=== PATIENT | male | born 1985 | race Two or more races ===

== ENCOUNTER 2020-05-05 16:16 | Inpatient (IN) | payer SELFPAY ==
[~2020-05-05] VITALS: Ht 170.2 cm; Wt 108.6 kg
[2020-05-05] MEDS ORDERED: MORPHINE SULF INJ 2 MG/ML SYRINGE 1ML IV ONE ×3 (19:45→21:45)
[2020-05-05] MEDS ORDERED: ONDANSETRON HCL 4 MG/2 ML VIAL IV ONE (19:45)
[2020-05-05 19:52] LABS: Basophils # (auto) 0.1 10 ^3/uL (0-0.2); Basophils % (auto) 0.3 % (0.0-2.0); Eosinophils # (auto) 0 10 ^3/uL (0-0.8); Hematocrit 46.5 % (41.0-53.0); Hemoglobin 15.7 g/dL (13.5-17.5); Lymphocytes # (auto) 1.4 10 ^3/uL (0.4-5.4); Lymphocytes % (auto) 6.6 % (10.0-50.0); Mean Corpuscular Hemoglobin 28.9 pg (28.0-32.0); Mean Corpuscular Hgb Conc. 33.7 g/dL (32.0-36.0); Mean Corpuscular Volume 85.8 fL (80.0-100.0); Monocytes # (auto) 1.9 10 ^3/uL (0-1.3); Monocytes % (auto) 8.8 % (0.0-12.0); Neutrophils % (auto) 84.3 % (37.0-80.0); Platelet Count (auto) 385 10^3/uL (140-450); Red Blood Cells 5.42 10^6/uL (4.5-5.90); Red Cell Distribution Width 13.3 % (11.8-14.3); White Blood Cell 21.4 10^3/uL (4.4-10.8)
[2020-05-05 20:07] LABS: Albumin 3.9 g/dL (3.4-5.0); Calcium 8.5 mg/dL (8.5-10.1)
[2020-05-05 20:10] LABS: Bilirubin, Total 0.9 mg/dL (0.2-1.0)
[2020-05-05] MEDS ORDERED: LACTATED RINGER'S 1,000 ML IV ONE (20:45)
[2020-05-05] MEDS ORDERED: HYDROcodone-ACET 5/325MG TAB PO PRN (22:30)
[2020-05-05] MEDS ORDERED: LACTATED RINGER'S 1,000 ML IV SCH (22:30)
[2020-05-05] MEDS ORDERED: DOCUSATE SOD 100 MG CAP PO PRN (22:30)
[2020-05-05] MEDS ORDERED: NITROGLYCERIN 0.4 MG SL TAB SL PRN (22:30)
[2020-05-05] MEDS ORDERED: MORPHINE SULF INJ 2 MG/ML SYRINGE 1ML IV PRN (22:30)
[2020-05-05] MEDS ORDERED: ONDANSETRON HCL 4 MG/2 ML VIAL IV PRN (22:30)
[2020-05-05] MEDS ORDERED: ACETAMINOPHEN 325 MG TAB PO PRN (22:30)
[2020-05-05 23:49] LABS: Urine Amorphous Crystal FEW /hpf (None Seen); Urine Bacteria NONE SEEN /hpf (None Seen); Urine Blood 1+ /uL (Negative); Urine Hyaline Cast FEW /lpf (0 - 2); Urine Mucus FEW (None Seen); Urine Specific Gravity 1.026 (1.001-1.035); Urine WBC 8 /hpf (0 - 3)
[2020-05-06 00:15] LABS: INR 1.03 (0.9-1.15); Partial Thromboplastin Time 22.8 sec (23.0-31.2)
[2020-05-06] MEDS: MORPHINE SULFATE 4 MG/ML SYR/VIAL IV PRN ×2 (04:08→20:48)
[2020-05-06 07:49] LABS: Basophils # (auto) 0 10 ^3/uL (0-0.2); Basophils % (auto) 0.3 % (0.0-2.0); Eosinophils # (auto) 0 10 ^3/uL (0-0.8); Hematocrit 37.4 % (41.0-53.0); Hemoglobin 12.9 g/dL (13.5-17.5); Lymphocytes % (auto) 19.7 % (10.0-50.0); Mean Corpuscular Hemoglobin 28.9 pg (28.0-32.0); Mean Corpuscular Hgb Conc. 34.6 g/dL (32.0-36.0); Mean Corpuscular Volume 83.6 fL (80.0-100.0); Monocytes # (auto) 1.7 10 ^3/uL (0-1.3); Monocytes % (auto) 16.4 % (0.0-12.0); Neutrophils # (auto) 6.6 10 ^3/uL (1.6-8.6); Neutrophils % (auto) 63.6 % (37.0-80.0); Platelet Count (auto) 307 10^3/uL (140-450); Red Blood Cells 4.47 10^6/uL (4.5-5.90); White Blood Cell 10.4 10^3/uL (4.4-10.8)
[2020-05-06 08:19] LABS: Potassium 3.9 mmol/L (3.5-5.1)
[2020-05-06 08:30] LABS: Bilirubin, Total 1.9 mg/dL (0.2-1.0); Calcium 8.4 mg/dL (8.5-10.1); Total Protein 6.8 g/dL (6.4-8.2)
[2020-05-06] MEDS: cefTRIAXone 1GM/50ML D5W 50 ML IV SCH (09:29)
[2020-05-06] MEDS: PANTOPRAZOLE 40 MG/10 ML VIAL INJ IV SCH (10:20)
[2020-05-06] MEDS: ZINC SULFATE 220mg CAP or TAB PO SCH (10:21)
[2020-05-06] MEDS: ENOXAPARIN SOD 40 MG/0.4 ML SYRINGE SC SCH (10:21)
[2020-05-06] MEDS: ASCORBIC ACID 500 MG TAB PO SCH ×2 (10:21→20:49)
[2020-05-06] MEDS ORDERED: ceFAZolin 1GM/50ML 100 ML IV ONE (10:49)
[2020-05-06] MEDS ORDERED: SUCCINYLCHOLINE CHLORIDE 20 MG/ML 10ML VIAL IV ONE (10:55)
[2020-05-06] MEDS ORDERED: fentaNYL CITRATE 5 ML ONE (11:00)
[2020-05-06] MEDS ORDERED: ROCURONIUM 10MG/ML 10ML VIAL IV ONE (11:00)
[2020-05-06] MEDS ORDERED: PROPOFOL 10 MG/ML 20 ML IV ONE (11:02)
[2020-05-06] MEDS ORDERED: BUPIVACAINE 0.25% INJ 50ML VIAL ONE (11:39)
[2020-05-06] MEDS ORDERED: HYDROmorphone HCL 2 MG/ML VL ONE (13:05)
[2020-05-06] MEDS: ceFAZolin 1GM/50ML 50 ML IV SCH ×2 (13:15→20:47)
[2020-05-06] MEDS: LACTATED RINGER'S 1,000 ML IV SCH (13:15)
[2020-05-06] MEDS ORDERED: hydrALAZINE HCL 20 MG/ML VL IV PRN (13:45)
[2020-05-06] MEDS ORDERED: MORPHINE SULFATE 4 MG/ML SYR/VIAL IV PRN (13:45)
[2020-05-06] MEDS ORDERED: ePHEDrine SULFATE 50 MG/ML AMP IV PRN (13:45)
[2020-05-06] MEDS ORDERED: hydrALAZINE HCL 20 MG/ML VL ONE (13:56)
[2020-05-06] MEDS ORDERED: KETOROLAC TROMETH 30 MG/ML 1ML VIAL IV ONE (14:30)
[2020-05-06 17:00] VITALS: BP 132/79
[2020-05-06 22:00] VITALS: BP 101/62
[2020-05-07] MEDS: LACTATED RINGER'S 1,000 ML IV SCH ×3 (00:14→19:15)
[2020-05-07] MEDS: MORPHINE SULFATE 4 MG/ML SYR/VIAL IV PRN ×2 (03:16→09:07)
[2020-05-07] MEDS: ceFAZolin 1GM/50ML 50 ML IV SCH (03:19)
[2020-05-07 05:00] VITALS: BP 126/71
[2020-05-07 06:45] LABS: Basophils # (auto) 0 10 ^3/uL (0-0.2); Basophils % (auto) 0.5 % (0.0-2.0); Eosinophils # (auto) 0 10 ^3/uL (0-0.8); Eosinophils % (auto) 0.3 % (0.0-7.0); Hematocrit 29.7 % (41.0-53.0); Hemoglobin 10.5 g/dL (13.5-17.5); Lymphocytes # (auto) 1.7 10 ^3/uL (0.4-5.4); Lymphocytes % (auto) 18.4 % (10.0-50.0); Mean Corpuscular Hemoglobin 29.8 pg (28.0-32.0); Mean Corpuscular Hgb Conc. 35.2 g/dL (32.0-36.0); Mean Corpuscular Volume 84.6 fL (80.0-100.0); Monocytes # (auto) 1.1 10 ^3/uL (0-1.3); Monocytes % (auto) 11.1 % (0.0-12.0); Neutrophils # (auto) 6.6 10 ^3/uL (1.6-8.6); Neutrophils % (auto) 69.7 % (37.0-80.0); Nucleated Red Blood Cells % 0.1 %; Platelet Count (auto) 218 10^3/uL (140-450); Red Blood Cells 3.51 10^6/uL (4.5-5.90); Red Cell Distribution Width 12.7 % (11.8-14.3); White Blood Cell 9.5 10^3/uL (4.4-10.8)
[2020-05-07 07:06] LABS: Potassium 4.1 mmol/L (3.5-5.1)
[2020-05-07 07:12] LABS: Albumin 2.6 g/dL (3.4-5.0); BUN/Creatinine Ratio 14.5; Calcium 7.4 mg/dL (8.5-10.1)
[2020-05-07 07:15] LABS: Bilirubin, Total 2.6 mg/dL (0.2-1.0); Total Protein 5.9 g/dL (6.4-8.2)
[2020-05-07 09:00] VITALS: BP 124/74
[2020-05-07] MEDS: cefTRIAXone 1GM/50ML D5W 50 ML IV SCH (09:15)
[2020-05-07] MEDS: ASCORBIC ACID 500 MG TAB PO SCH ×2 (10:08→21:48)
[2020-05-07] MEDS: ZINC SULFATE 220mg CAP or TAB PO SCH (10:08)
[2020-05-07] MEDS: PANTOPRAZOLE 40 MG/10 ML VIAL INJ IV SCH (10:08)
[2020-05-07] MEDS: ENOXAPARIN SOD 40 MG/0.4 ML SYRINGE SC SCH (10:09)
[2020-05-07 13:00] VITALS: BP 133/70
[2020-05-07 17:00] VITALS: BP 130/70
[2020-05-08] MEDS: LACTATED RINGER'S 1,000 ML IV SCH (05:00)
[2020-05-08 05:10] VITALS: BP 117/69
[2020-05-08 05:42] LABS: Basophils # (auto) 0 10 ^3/uL (0-0.2); Basophils % (auto) 0.4 % (0.0-2.0); Eosinophils # (auto) 0.1 10 ^3/uL (0-0.8); Eosinophils % (auto) 0.9 % (0.0-7.0); Hematocrit 28.6 % (41.0-53.0); Hemoglobin 9.9 g/dL (13.5-17.5); Lymphocytes # (auto) 1.7 10 ^3/uL (0.4-5.4); Lymphocytes % (auto) 15.9 % (10.0-50.0); Mean Corpuscular Hemoglobin 29.2 pg (28.0-32.0); Mean Corpuscular Hgb Conc. 34.6 g/dL (32.0-36.0); Mean Corpuscular Volume 84.3 fL (80.0-100.0); Monocytes # (auto) 0.9 10 ^3/uL (0-1.3); Monocytes % (auto) 8.8 % (0.0-12.0); Neutrophils # (auto) 7.8 10 ^3/uL (1.6-8.6); Platelet Count (auto) 232 10^3/uL (140-450); Red Blood Cells 3.39 10^6/uL (4.5-5.90); Red Cell Distribution Width 12.7 % (11.8-14.3); White Blood Cell 10.6 10^3/uL (4.4-10.8)
[2020-05-08 06:00] LABS: Potassium 3.8 mmol/L (3.5-5.1)
[2020-05-08 06:05] LABS: BUN/Creatinine Ratio 15.8; Calcium 8.1 mg/dL (8.5-10.1)
[2020-05-08 09:00] VITALS: BP 133/65
[2020-05-08] MEDS: cefTRIAXone 1GM/50ML D5W 50 ML IV SCH (09:12)
[2020-05-08] MEDS: ASCORBIC ACID 500 MG TAB PO SCH (10:31)
[2020-05-08] MEDS: PANTOPRAZOLE 40 MG/10 ML VIAL INJ IV SCH (10:31)
[2020-05-08] MEDS: ZINC SULFATE 220mg CAP or TAB PO SCH (10:31)
[2020-05-08] MEDS: ENOXAPARIN SOD 40 MG/0.4 ML SYRINGE SC SCH (10:31)
[2020-05-08 14:35] VITALS: BP 133/65
== END 2020-05-08 15:17 | disposition home or self-care (01) | DRG 481 ==
LOC: ER 16:16 → TELE 16:17 → TELE-CENTR 05-06 16:55
PROVIDERS: ADMIT Nurse Practitioner Family; ATTEND Internal Medicine
PROC: BW1C1ZZ Fluoroscopy of Lower Extremity using Low Osmolar Contrast (ICD-10-PCS; 2020-05-06)
PROC: 0QS804Z Reposition Right Femoral Shaft with Internal Fixation Device, Open Approach (ICD-10-PCS; principal; 2020-05-06 10:55)
DX: S72.301A Unspecified fracture of shaft of right femur, initial encounter for closed fracture (principal); E44.1 Mild protein-calorie malnutrition; E87.1 Hypo-osmolality and hyponatremia; E66.01 Morbid (severe) obesity due to excess calories; E74.39 Other disorders of intestinal carbohydrate absorption; Z20.828 Contact with and (suspected) exposure to other viral communicable diseases; D72.829 Elevated white blood cell count, unspecified; D63.8 Anemia in other chronic diseases classified elsewhere; R73.9 Hyperglycemia, unspecified; S92.351A Displaced fracture of fifth metatarsal bone, right foot, initial encounter for closed fracture; V86.55XA Driver of 3- or 4- wheeled all-terrain vehicle (ATV) injured in nontraffic accident, initial encounter; Y93.89 Activity, other specified; Y92.89 Other specified places as the place of occurrence of the external cause; Y99.8 Other external cause status; Z68.37 Body mass index [BMI] 37.0-37.9, adult
CPT/HCPCS: 36415; 70450; 71045; 72170; 73600; 73630; 76000; 80048; 80053; 81001; 83036; 85025; 85610; 85730; 86850; 86900; 86901; 87426; 96365; 96375; 96376; 97110; 97116; 97530; A4565; C9113; G0378; J0330; J0690; J0696; J1885; J2405; J2704; J3490